=== PATIENT | female | born 1950 | race Caucasian/White ===

== ENCOUNTER → 2016-11-08 | Outpatient (CLI) | payer OTHER | LOC: FIMAGING 15:17 | PROVIDERS: ATTEND Internal Medicine | DX: Z12.31 Encounter for screening mammogram for malignant neoplasm of breast (principal) | CPT/HCPCS: G0202 ==

== ENCOUNTER → 2017-09-13 | Outpatient (CLI) | payer OTHER ==
[~2017-09-13] MED LIST: IOPAMIDOL (ISOVUE 370) 100 ML BTL IV ONE
== END ==
LOC: FIMAGING 15:57
PROVIDERS: ATTEND Internal Medicine
DX: J43.9 Emphysema, unspecified (principal); R91.8 Other nonspecific abnormal finding of lung field; Z87.891 Personal history of nicotine dependence
CPT/HCPCS: Q9967

== ENCOUNTER → 2017-09-30 | Outpatient (CLI) | payer OTHER | LOC: FIMAGING 14:31 | PROVIDERS: ATTEND Internal Medicine Critical Care Medicine | DX: R91.8 Other nonspecific abnormal finding of lung field (principal) ==

== ENCOUNTER → 2017-10-26 | Outpatient (CLI) | payer OTHER | LOC: FIMAGING 15:40 | PROVIDERS: ATTEND Internal Medicine Critical Care Medicine | DX: R91.8 Other nonspecific abnormal finding of lung field (principal) ==

== ENCOUNTER → 2017-12-02 | Outpatient (CLI) | payer OTHER ==
[~2017-12-02] MED LIST changes: +GADOBUTROL 10 ML VIAL IVP ONE; -IOPAMIDOL (ISOVUE 370) 100 ML BTL IV ONE
== END ==
LOC: FIMAGING 13:50
PROVIDERS: ATTEND Internal Medicine Hematology & Oncology
DX: R22.0 Localized swelling, mass and lump, head (principal); C34.11 Malignant neoplasm of upper lobe, right bronchus or lung
CPT/HCPCS: A9585

== ENCOUNTER 2017-12-26 06:04 | Day surgery (SDC) | payer OTHER ==
[2017-12-26] MEDS ORDERED: ceFAZolin 2 GM/DEXTROSE 100 ML IV ONE (06:08)
[2017-12-26] MEDS ORDERED: LIDOCAINE 1% 2 ML INJ ID PRN (06:11)
[2017-12-26] MEDS ORDERED: LR 1,000 ML IV ONE (06:11)
[2017-12-26] MEDS ORDERED: HEPARIN 10,000 UNIT/10 ML MDV (1,000 UNIT/ML) ONE (07:07)
[2017-12-26] MEDS ORDERED: LIDOCAINE 1% 300 MG/30 ML SDV ONE (07:07)
[2017-12-26] MEDS ORDERED: BUPIVACAINE 0.5% 30 ML SDV ONE (07:07)
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
[2017-12-26] MEDS ORDERED: MIDAZOLAM 2 MG/2 ML VIAL IVP ONE (07:19)
[2017-12-26] MEDS ORDERED: MIDAZOLAM 2 MG/2 ML VIAL ONE (07:22)
[2017-12-26] MEDS ORDERED: fentaNYL 100 MCG/2 ML INJ ONE (07:25)
[2017-12-26] MEDS ORDERED: LIDOCAINE 2% 2 ML INJ ONE (07:25)
[2017-12-26] MEDS ORDERED: PROPOFOL/EMULSION 500 MG/50 ML BOTTLE IV ONE (07:26)
--- NOTE | 2017-12-26 07:28 | PDHPUP ---
History & Physical Update H&P update statement: This history and physical update is based on an assessment of the patient which was completed after admission or registration (within 24 hours), but prior to the surgery/procedure. H&P update: H&P reviewed & patient examined, no change in patient's condition since H&P completed
--- NOTE | 2017-12-26 08:44 | POSTOPPROG ---
Post Op Note Date of Operation: 12/26/17 Surgeon: Waldemar Price Dinkey Driver: Poppy Serrato MSIII Anesthesiologist: Dr. Garcia Anesthesia: IV Sedation Pre-op Diagnosis: Cancer Post-op Diagnosis: same Procedure: Portacath Inf/Abcess present in the surg proc area at time of surgery?: No EBL: Minimal
[2017-12-26] MEDS ORDERED: HYDROCODONE/APAP 5/325 TAB PO PRN (08:50)
[2017-12-26] MEDS ORDERED: fentaNYL 100 MCG/2 ML INJ IVP PRN (08:50)
[2017-12-26] MEDS ORDERED: ALBUTEROL 3 ML DEYVIAL IH PRN (08:50)
[2017-12-26] MEDS ORDERED: ONDANSETRON 4 MG/2 ML VIAL IVP PRN (08:50)
[2017-12-26] MEDS ORDERED: PROMETHAZINE HCL 25 MG/ML INJ IVP PRN (08:50)
[2017-12-26] MEDS ORDERED: NALOXONE HCL 0.4 MG/ML INJ IVP PRN (08:50)
--- NOTE | 2017-12-26 08:51 | POSTANESTH ---
Post Anesthetic Evaluation Cardiovascular Status: Normal, Stable Respiratory Status: Normal, Stable Level of Consciousness/Mental Status: Can Participate in Eval Pain Control: Adequate, Prn Tx Ordered Nausea/Vomiting Control: Adequate, Prn Tx Ordered Complications Possibly Related to Anesthesia: None Noted
[2017-12-26 10:44] VITALS: BP 150/68
--- NOTE | 2017-12-26 15:59 | GOP ---
DATE OF OPERATION: 12/26/2017 SURGEON: Rodolfo Price MD RN CHILD: Poppy Serrato MS3. ANESTHESIA: Monitored anesthetic care. ANESTHESIOLOGIST: Dr. Garcia. PREOPERATIVE DIAGNOSIS: Cancer. POSTOPERATIVE DIAGNOSIS: Cancer. PROCEDURE PERFORMED: Port-A-Cath placement. FINDINGS: The patient had a left subclavian vein port placement. The port aspirated and flushed wel l and had a good appearance on fluoroscopy. ESTIMATED BLOOD LOSS: 20 cc. INDICATIONS: A 67-year-old female with a history of cancer. Risks and benefits of the procedure dis cussed with the patient and her family, questions were answered. They wished to proceed. DESCRIPTION OF PROCEDURE: The patient was in the supine position. After the induction of adequate I V sedation, the patient was prepped and draped in the standard surgical fashion. Marcaine 0.5% was i njected throughout the left chest for local anesthesia. A finder needle was used to aspirate the lef t subclavian vein. After dark, nonpulsatile blood was aspirated, the wire threaded without difficult y. Placement was confirmed on fluoroscopy. Next, the pocket site was created using a transverse inci mena with a #15 blade. This was carried down to the subcutaneous tissue with Bovie cautery and blunt dissection. A pocket was created inferiorly in a similar fashion. The wire site was widened with a #11 blade. The catheter was then tunneled from pocket site to the wire site. The dilator and sheat h were then placed over the wire. Placement was confirmed on fluoroscopy. The wire and dilator were removed and the catheter was threaded through the sheath. The placement was then adjusted under fluo roscopy. The pre-flushed catheter and port were then attached after trimming the catheter. The cath eter was sutured to the anterior chest wall using 2-0 Prolene in an interrupted fashion. It aspirate d and flushed easily, and placement was once again confirmed under fluoroscopy. The pocket was close d in layers using 3-0 Vicryl in an interrupted fashion for the subcutaneous tissue. The skin at all s ites was closed with 4-0 Monocryl in a subcuticular stitch. The wound was dressed with Dermabond. T he patient was then taken to the postanesthesia care unit in stable condition. COMPLICATIONS: None. DRAINS: None. /[id number]/MODL
== END 2017-12-26 10:40 | disposition home or self-care (01) ==
LOC: FSGY 06:04
PROVIDERS: ATTEND Surgery
DX: C34.91 Malignant neoplasm of unspecified part of right bronchus or lung (principal); F17.210 Nicotine dependence, cigarettes, uncomplicated
CPT/HCPCS: C1788; J0690; J1642; J1644; J2250; J2704; J3010

== ENCOUNTER → 2018-08-01 | Outpatient (CLI) | payer OTHER ==
[~2018-08-01] MED LIST changes: +IOPAMIDOL (ISOVUE-300) 100 ML BTL ONE
== END ==
LOC: FIMAGING 08:18
PROVIDERS: ATTEND Internal Medicine Hematology & Oncology
DX: C34.11 Malignant neoplasm of upper lobe, right bronchus or lung (principal); C79.51 Secondary malignant neoplasm of bone; G93.5 Compression of brain
CPT/HCPCS: 82565-PO; A9585; Q9967

== ENCOUNTER → 2018-08-14 | Outpatient (CLI) | payer OTHER ==
[~2018-08-14] MED LIST changes: -GADOBUTROL 10 ML VIAL IVP ONE; +IOPAMIDOL (ISOVUE 370) 100 ML BTL IV ONE; -IOPAMIDOL (ISOVUE-300) 100 ML BTL ONE
== END ==
LOC: FIMAGING 08:07
PROVIDERS: ATTEND Nurse Practitioner
DX: Z45.2 Encounter for adjustment and management of vascular access device (principal)
CPT/HCPCS: J1642; Q9967

== ENCOUNTER → 2018-08-31 | Outpatient (CLI) | payer OTHER | LOC: FIMAGING 13:06 | PROVIDERS: ATTEND Nurse Practitioner | DX: I82.491 Acute embolism and thrombosis of other specified deep vein of right lower extremity (principal); I82.591 Chronic embolism and thrombosis of other specified deep vein of right lower extremity; C34.90 Malignant neoplasm of unspecified part of unspecified bronchus or lung ==

== ENCOUNTER 2018-09-07 14:28 | Observation (INO) | payer OTHER ==
[2018-09-07 15:30] LABS: PLATELET COUNT 93 10^3/uL (150-400)
--- NOTE | 2018-09-07 15:40 | EDPHY ---
H & P Stated Complaint: L VISUAL PROBLEMS SINCE TUESDAY SEEN BY OPTH SENT FOR MRI Time Seen by Provider: 09/07/18 14:51 HPI/ROS: CHIEF COMPLAINT: Vision loss HISTORY OF PRESENT ILLNESS: 68-year-old female s/p left carotid endarterectomy and h/o lung cancer presents with visual loss. Onset of left-sided visual loss 3 days ago. The visual loss has been constant since then. She was seen by Dr. Garcia in the office today, who performed an ophthalmological exam. Eye exam was normal and she was sent to the emergency department for further evaluation of CVA. Frequent headaches and intermittent dizziness over the past week. She was diagnosed with a DVT in the mid right gastrocnemius vein on 08/31/2018 and prescribed Xarelto. She has not started taking Xarelto yet because the pharmacy did not have the correct dosing. She stopped taking aspirin when she was diagnosed with the DVT. Denies trauma, extremity weakness/numbness, chiropractic manipulation. REVIEW OF SYSTEMS: complete 10 point ROS reviewed and is negative except for the noted elements in the HPI Source: Patient - Personal History Current Tetanus Diphtheria and Acellular Pertussis (TDAP): Yes Tetanus Vaccine Date: - Medical/Surgical History Hx Asthma: No Hx Chronic Respiratory Disease: No Hx Diabetes: No Hx Cardiac Disease: No Hx Renal Disease: No Hx Cirrhosis: No Hx Alcoholism: No Hx HIV/AIDS: No Hx Splenectomy or Spleen Trauma: No Other PMH: LUNG CANCER - Social History Smoking Status: Former smoker Alcohol Use: Sober Drug Use: None - Physical Exam Exam: General Appearance: Alert, pleasant Eyes: Pupils equal and round, no conjunctival pallor or injection, left homomonyous hemianopsia ENT, Mouth: Mucous membranes moist Neck: Normal inspection Respiratory: Lungs are clear to auscultation Cardiovascular: Regular rate and rhythm Gastrointestinal: Abdomen is soft and nontender Neurological: Alert, oriented x3, cranial nerves III through XII intact, motor 5/5, sensory intact to light touch, normal gait. Skin: Warm and dry, no rash Extremities: Normal inspection Psychiatric: Mood and affect normal Constitutional: Initial Vital Signs Temperature (C) 36.7 C 09/07/18 14:31 Heart Rate 110 H 09/07/18 14:31 Respiratory Rate 20 09/07/18 14:31 Blood Pressure 198/113 H 09/07/18 14:31 O2 Sat (%) 88 L 09/07/18 14:31 O2 Delivery Mode Room Air O2 (L/minute) 2 Allergies/Adverse Reactions: erythromycin base [Erythromycin Base] Allergy (Unknown, Verified 09/07/18 16:48) Vomiting venlafaxine HCl [From Effexor] Allergy (Unknown, Verified 09/07/18 16:48) "Hunt goofy, drunk" Home Medications: Medication Instructions Recorded Atorvastatin Calcium [Lipitor 40 80 mg PO DAILY@09/07/18 mg (*)] Baclofen [Baclofen 10 mg (*)] 10 mg PO DAILY@09/07/18 Baclofen [Baclofen 10 mg (*)] 10 mg PO Q8H PRN 09/07/18 Cholecalciferol Vit D3 [Vitamin D3 2,000 units PO DAILY@09/07/18 (*)] Dexamethasone [Decadron 4 MG (*)] 4 mg PO BID PRN 09/07/18 Esomeprazole Magnesium [Nexium 20 mg PO DAILY@09/07/18 24Hr] Folic Acid [Folic Acid 1 MG (*)] 1 mg PO DAILY@09/07/18 Furosemide [Lasix 20 MG (*)] 20 mg PO DAILY PRN 09/07/18 Hydrocortisone [Cortef 10 mg (*)] 10 mg PO BID@,09/07/18 Megestrol Acetate 400 mg PO DAILY PRN 09/07/18 Rivaroxaban [Xarelto 15mg (*)] 15 mg PO BID 09/07/18 oxyCODONE HCL [Oxycontin] 30 mg PO BID@09/07/18 oxyCODONE IR [Oxycodone Ir (*)] 5 - 10 mg PO Q4H PRN 09/07/18 Aspirin [Aspirin 325 mg (*)] 325 mg PO DAILY tab 09/08/18 metFORMIN HCL [Glucophage 500 mg 500 mg PO BIDMEAL #60 tab 09/08/18 (*)] Medical Decision Making - Diagnostics EKG Interpretation: EKG interpreted by me reveals normal sinus rhythm, rate 94, LAE, no ST or T segment changes. Interpretation: borderline EKG Imaging Results: Head CT 09/07/18 14:51 Impression: Subacute versus acute right occipital ischemic infarction. No hemorrhagic transformation or mass effect. Findings discussed with Emergency Department physician, Mitra Stanton, on 2018 at 15:30. Imaging: Discussed imaging studies w/ rn call center Radiologist, I viewed and interpreted images myself ED Course/Re-evaluation: This patient presents with a 3 day h/o left visual field deficit. The remainder of her neurologic exam is normal. Sx c/w CVA. She is outside the window for tPA. CT scan of the brain read by Dr. Massey reveals a subacute right occipital CVA, which correlates with her symptoms. Results discussed with the patient. Lower extremity ultrasound from 08/31/2018 reviewed and reveals a DVT in the right mid gastrocnemius vein. Will need treatment for DVT and for CVA prevention, including Xarelto and ASA (given in ED). Dr. Chua was consulted and suggests aspirin 325 mg daily as well as Xarelto for the DVT. Dr. Goldman was consulted from the hospitalist service and will admit the patient. CTA head/neck: mild arteriosclerosis, no acute thrombosis. Pt remained stable throughout her ED stay. Differential Diagnosis: includes though not limited to retinal hemorrhage, retinal vein/artery thrombosis, ICH, tumor - Data Points Laboratory Results: Laboratory Results 09/07/18 15:20 09/07/18 15:20 Medications Given: Discontinued Medications Artificial Tears (Natural Balance Tears) 1 drop EACHEYE Q2HRS PRN PRN Reason: Dry Irritated Eyes Stop: 03/06/19 20:00 Last Admin: 09/08/18 09:32 Dose: 1 drop Aspirin (Aspirin) 325 mg PO EDNOW ONE Stop: 09/07/18 15:44 Last Admin: 09/07/18 15:49 Dose: 325 mg Aspirin (Aspirin) 325 mg PO DAILY [facility] Stop: 03/07/19 08:59 Last Admin: 09/08/18 08:26 Dose: 325 mg Atorvastatin Calcium (Lipitor) 80 mg PO DAILY@18 [facility] Stop: 03/06/19 17:59 Last Admin: 09/07/18 19:42 Dose: 80 mg Baclofen (Baclofen) 10 mg PO DAILY@18 [facility] Stop: 03/06/19 17:59 Last Admin: 09/07/18 19:41 Dose: 10 mg Cholecalciferol (Vitamin D) 2,000 units PO DAILY@18 [facility] Stop: 03/06/19 17:59 Last Admin: 09/07/18 19:41 Dose: 2,000 units Folic Acid (Folic Acid) 1 mg PO DAILY@18 [facility] Stop: 03/06/19 17:59 Last Admin: 09/07/18 19:42 Dose: 1 mg Hydrocortisone (Cortef) 10 mg PO BID@ [facility] Stop: 03/06/19 17:59 Last Admin: 09/08/18 05:02 Dose: 10 mg Oxycodone HCl (Oxycontin) 30 mg PO BID@ [facility] Stop: 09/17/18 17:59 Last Admin: 09/08/18 05:02 Dose: 30 mg Oxycodone HCl (Oxycodone Ir) 5 - 10 mg PO Q4H PRN PRN Reason: Pain, Breakthrough Stop: 09/17/18 16:57 Last Admin: 09/08/18 13:06 Dose: 10 mg Pantoprazole Sodium (Protonix) 40 mg PO DAILY@0400 [facility] Stop: 03/07/19 03:59 Last Admin: 09/08/18 05:02 Dose: 40 mg Potassium Chloride (Klor-Con) 10 meq PO ONCE ONE PRN Reason: Protocol Stop: 09/07/18 19:28 Last Admin: 09/07/18 19:41 Dose: 10 meq Potassium Chloride (Klor-Con) 10 meq PO ONCE ONE PRN Reason: Protocol Stop: 09/08/18 07:08 Last Admin: 09/08/18 08:26 Dose: 10 meq Rivaroxaban (Xarelto) 15 mg PO EDNOW ONE Stop: 09/07/18 15:45 Last Admin: 09/07/18 15:49 Dose: 15 mg Rivaroxaban (Xarelto) 15 mg PO DAILY [facility] Stop: 03/07/19 08:59 Last Admin: 09/08/18 08:25 Dose: 15 mg Point of Care Test Results: Chemistry 09/07/18 15:39 POC Troponin I 0.02 ng/mL ng/mL (0.00-0.08) Departure - Departure Disposition: [facility] Acute Clinical Impression: Acute ischemic stroke Condition: Fair
[2018-09-07 15:42] LABS: INR 1.09 (0.83-1.16); PROTIME(PATIENT) 13.7 SEC (12.0-15.0)
[2018-09-07] MEDS ORDERED: ASPIRIN 325 MG TAB PO ONE (15:43)
[2018-09-07] MEDS ORDERED: RIVAROXABAN 15 MG TAB PO ONE (15:44)
[2018-09-07] MEDS ORDERED: IOPAMIDOL (ISOVUE 370) 100 ML BTL IV ONE (16:28)
[2018-09-07] MEDS ORDERED: BACLOFEN 10 MG TAB PO PRN (16:58)
[2018-09-07] MEDS ORDERED: DEXAMETHASONE 4 MG TAB PO PRN (16:58)
[2018-09-07] MEDS ORDERED: MEGESTROL ACETATE 400 MG PO PRN (16:58)
[2018-09-07] MEDS ORDERED: hydrALAZINE 10 MG TAB PO PRN (17:08)
--- NOTE | 2018-09-07 17:12 | PDGENHP ---
<Yahaira Alanis - Last Filed: 09/07/18 17:57> History and Physical - Chief Complaint Subacute vs acute right occipital ischemic infarction - History of Present Illness 68 y/o female w/hx of non-small cell lung cancer presents w/ left sided visual loss. Onset was on Tuesday. She was dx'ed w/DVT in the mid-right gastrocnemius vein 08/31/18 and prescribed Xarelto and told to stop ASA 81 mg. The pharmacy did not have the correct dose and because of that, she was not using any AC or anti-platelet since being dx'ed w/the DVT last . Since Tuesday of this week, her vision loss has been constant. She f/u'ed today w/Dr. Garcia, carton lettering machine operator, for an exam which was normal and sent to the ED for further evaluation of a CVA. Head CT w/o contrast reveals subacute vs acute right occipital ischemic infarction w/no hemorrhagic transformation or mass effect. She endorses intermittent PALACIOS and dizziness. Endorses CP r/t lung cancer. Denies palpitations, nausea, or vomiting. She is being admitted for treatment and monitoring. History Information - Allergies/Home Medication List Allergies/Adverse Reactions: erythromycin base [Erythromycin Base] Allergy (Unknown, Verified 09/07/18 16:48) Vomiting venlafaxine HCl [From Effexor] Allergy (Unknown, Verified 09/07/18 16:48) "[place] goofy, drunk" Home Medications: Atorvastatin Calcium [Lipitor 40 mg (*)] 80 mg PO DAILY@09/07/18 [Last Taken 09/06/18] Baclofen [Baclofen 10 mg (*)] 10 mg PO DAILY@09/07/18 [Last Taken 09/06/18] Baclofen [Baclofen 10 mg (*)] 10 mg PO Q8H PRN 09/07/18 [Last Taken Unknown] Cholecalciferol Vit D3 [Vitamin D3 (*)] 2,000 units PO DAILY@09/07/18 [Last Taken 09/06/18] Dexamethasone [Decadron 4 MG (*)] 4 mg PO BID PRN 09/07/18 [Last Taken 09/01/18] Esomeprazole Magnesium [Nexium 24Hr] 20 mg PO DAILY@09/07/18 [Last Taken ] Folic Acid [Folic Acid 1 MG (*)] 1 mg PO DAILY@18 09/07/18 [Last Taken 09/06/18] Furosemide [Lasix 20 MG (*)] 20 mg PO DAILY PRN 09/07/18 [Last Taken Unknown] Hydrocortisone [Cortef 10 mg (*)] 10 mg PO BID@,09/07/18 [Last Taken 05:00] Megestrol Acetate 400 mg PO DAILY PRN 09/07/18 [Last Taken 09/06/18] Rivaroxaban [Xarelto 15mg (*)] 15 mg PO BID 09/07/18 [Last Taken Unknown] oxyCODONE HCL [Oxycontin] 30 mg PO BID@,09/07/18 [Last Taken 09/07/18 05:00 ] oxyCODONE IR [Oxycodone Ir (*)] 5 - 10 mg PO Q4H PRN 09/07/18 [Last Taken ] I have personally reviewed and updated: family history, medical history, social history, surgical history Past Medical History: Non-small cell lung cancer, Allergic rhinitis, hyperlipidemia, depression, GERD, hx of CVA, peripheral vascular disease - Surgical History Additional surgical history: Left carotid endarterectomy (2002) - Family History Positive for: cancer (Mother had brain cancer) - Social History Smoking Status: Former smoker Alcohol Use: Sober Drug Use: None Additional social history: Lives w/partner. Employed at [employer]. Review of Systems Review of Systems: ROS: 10pt was reviewed & negative except for what was stated in HPI & below Physical Exam Physical Exam: Lab data and imaging were reviewed. Case discussed w/admitting physician, Dr. Raciel Goldman. WBC: 2.81 H/H: 13.1/40.0 Plt count: 93 Na: 133 K: 3.4 Cl: 94 Co2: 27 BUN/Cr: 22/1.1 Troponin: 0.02 INR: 1.09 EKG: NSR Head CT w/o contrast: see HPI Temp Pulse Resp BP Pulse Ox 36.5 C 84 18 181/85 H 97 09/07/18 16:39 09/07/18 16:39 09/07/18 16:39 09/07/18 16:39 09/07/18 16:39 O2 (L/minute) 2 Constitutional: other (Distraught. Tearful. Attempting to understand how this happened. "Did I do this to myself by not taking aspirin?") Eyes: other (Left homomonyous hemianopsia) Ears, Nose, Mouth, Throat: moist mucous membranes, hearing normal, ears appear normal, no oral mucosal ulcers Cardiovascular: regular rate and rhythym, no murmur, rub, or gallop, tachycardia Peripheral Pulses: 2+: dorsalis-pedis (R), dorsalis-pedis (L) Respiratory: reduced air movement Gastrointestinal: normoactive bowel sounds, soft, non-tender abdomen, no palpable masses Genitourinary: no bladder fullness, no bladder tenderness Skin: warm, normal color, no rashes or abrasions, no fluctuance, no induration, No mottled Musculoskeletal: full muscle strength, normal joint ROM, no joint effusions, muscular tenderness (Right calf tenderness. However, no edema or erythema.) Neurologic: AAOx3, sensation intact bilaterally, other (CN3-12 intact) Psychiatric: not encephalopathic, thought process linear, anxious Lymph, Heme, Immunologic: no cervical LAD, no supraclavicular LAD Lab Data & Imaging Review 09/07/18 15:20 09/07/18 15:20 WBC 2.81 10^3/uL (3.80-9.50) L 09/07/18 15:20 RBC 3.98 10^6/uL (4.18-5.33) L 09/07/18 15:20 Hgb 13.1 g/dL (12.6-16.3) 09/07/18 15:20 Hct 40.0 % (38.0-47.0) 09/07/18 15:20 MCV 100.5 fL (81.5-99.8) H 09/07/18 15:20 MCH 32.9 pg (27.9-34.1) 09/07/18 15:20 MCHC 32.8 g/dL (32.4-36.7) 09/07/18 15:20 RDW 16.5 % (11.5-15.2) H 09/07/18 15:20 Plt Count 93 10^3/uL (150-400) L 09/07/18 15:20 MPV 10.3 fL (8.7-11.7) 09/07/18 15:20 Neut % (Auto) 47.2 % (39.3-74.2) 09/07/18 15:20 Lymph % (Auto) 34.9 % (15.0-45.0) 09/07/18 15:20 [place] % (Auto) 14.6 % (4.5-13.0) H 09/07/18 15:20 Eos % (Auto) 0.4 % (0.6-7.6) L 09/07/18 15:20 Baso % (Auto) 0.4 % (0.3-1.7) 09/07/18 15:20 Nucleat RBC Rel Count 0.0 % (0.0-0.2) 09/07/18 15:20 Absolute Neuts (auto) 1.33 10^3/uL (1.70-6.50) L 09/07/18 15:20 Absolute Lymphs (auto) 0.98 10^3/uL (1.00-3.00) L 09/07/18 15:20 Absolute Monos (auto) 0.41 10^3/uL (0.30-0.80) 09/07/18 15:20 Absolute Eos (auto) 0.01 10^3/uL (0.03-0.40) L 09/07/18 15:20 Absolute Basos (auto) 0.01 10^3/uL (0.02-0.10) L 09/07/18 15:20 Absolute Nucleated RBC 0.00 10^3/uL (0-0.01) 09/07/18 15:20 Immature Gran % 2.5 % (0.0-1.1) H 09/07/18 15:20 Immature Gran # 0.07 10^3/uL (0.00-0.10) 09/07/18 15:20 RBC/WBC/PLT Morphology TNP 09/07/18 15:20 Platelet Estimate TNP 09/07/18 15:20 PT 13.7 SEC (12.0-15.0) 09/07/18 15:20 INR 1.09 (0.83-1.16) 09/07/18 15:20 APTT 25.1 SEC (23.0-38.0) 09/07/18 15:20 Sodium 133 mEq/L (135-145) L 09/07/18 15:20 Potassium 3.4 mEq/L (3.5-5.2) L 09/07/18 15:20 Chloride 94 mEq/L (97-110) L 09/07/18 15:20 Carbon Dioxide 27 mEq/l (22-31) 09/07/18 15:20 Anion Gap 12 mEq/L (6-14) 09/07/18 15:20 BUN 22 mg/dL (7-23) 09/07/18 15:20 Creatinine 1.1 mg/dL (0.6-1.0) H 09/07/18 15:20 Estimated GFR 50 09/07/18 15:20 Glucose 177 mg/dL (70-100) H 09/07/18 15:20 Calcium 8.8 mg/dL (8.5-10.4) 09/07/18 15:20 Total Bilirubin 1.9 mg/dL (0.1-1.4) H 09/07/18 15:20 Conjugated Bilirubin 0.3 mg/dL (0.0-0.5) 09/07/18 15:20 Unconjugated Bilirubin 1.6 mg/dL (0.0-1.1) H 09/07/18 15:20 AST 36 IU/L (14-46) 09/07/18 15:20 ALT 48 IU/L (9-52) 09/07/18 15:20 Alkaline Phosphatase 71 IU/L (38-126) 09/07/18 15:20 POC Troponin I 0.02 ng/mL (0.00-0.08) 09/07/18 15:39 Total Protein 6.6 g/dL (6.3-8.2) 09/07/18 15:20 Albumin 3.8 g/dL (3.5-5.0) 09/07/18 15:20 Assessment & Plan Assessment: 68 y/o female w/hx of lung cancer presenting w/ 3 days worth of left sided vision loss, subsequently upon imaging enduring right occipital lobe ischemic infarction. Vital signs presenting to the ED and currently respectively: BP 198/113, HR 110, Resp 20, Temp 36.7c, 88% RA to 95% 2L NC; BP 181/85, pulse 84, Resp 18, 36.5c, 97% 2L NC. #Subacute vs acute right occipital ischemic stroke -Neurology was consulted and recommended ED to give ASA and Xarelto for DVT -Cont ASA 325 QD + Xarelto 15 mg QD -Head and neck CTA pending -Echo w/bubbler pending -Cont tele monitoring -Stroke protocol initiated -Lipid panel in AM -Cycle one more troponin tonight; first one negative -PT/OT/CUSTOM SHOP WORKER to evaluate and treat #Hypertension -Remains hypertensive while in house, c/o intermittent PALACIOS -Permissive HTN; hydralazine PO PRN if sbp > 180 #RLE DVT -Noted continued tenderness to calf region however not edematous nor erythematous or taut. Reportedly stopped utilizing her ASA 81 mg and was to begin Xarelto but d/t her pharmacy not having the correct dose, she did not take either one. -Received Xarelto 15 mg PO in ED; cont 15 mg PO QD instead of BID in light of ischemic stroke #Non-small cell lung cancer -Oncologist is Dr. Baez -Receives tx Q3 wks -No longer smokes cigarettes #Hyponatremia/Hypokalemia -Encourage PO intake -K protocol initiated; replete Diet: Regular Code: Full VTE ppx: Xarelto Dispo: Admit to obs <Reinaldo Goldman - Last Filed: 09/07/18 23:39> History and Physical - History of Present Illness Review of Systems Review of Systems: Physical Exam Physical Exam: Temp Pulse Resp BP Pulse Ox 36.5 C 84 18 181/85 H 97 09/07/18 16:39 09/07/18 16:39 09/07/18 16:39 09/07/18 16:39 09/07/18 16:39 O2 (L/minute) 2 Lab Data & Imaging Review 09/07/18 15:20 09/07/18 18:13 WBC 2.81 10^3/uL (3.80-9.50) L 09/07/18 15:20 RBC 3.98 10^6/uL (4.18-5.33) L 09/07/18 15:20 Hgb 13.1 g/dL (12.6-16.3) 09/07/18 15:20 Hct 40.0 % (38.0-47.0) 09/07/18 15:20 MCV 100.5 fL (81.5-99.8) H 09/07/18 15:20 MCH 32.9 pg (27.9-34.1) 09/07/18 15:20 MCHC 32.8 g/dL (32.4-36.7) 09/07/18 15:20 RDW 16.5 % (11.5-15.2) H 09/07/18 15:20 Plt Count 93 10^3/uL (150-400) L 09/07/18 15:20 MPV 10.3 fL (8.7-11.7) 09/07/18 15:20 Neut % (Auto) 47.2 % (39.3-74.2) 09/07/18 15:20 Lymph % (Auto) 34.9 % (15.0-45.0) 09/07/18 15:20 [place] % (Auto) 14.6 % (4.5-13.0) H 09/07/18 15:20 Eos % (Auto) 0.4 % (0.6-7.6) L 09/07/18 15:20 Baso % (Auto) 0.4 % (0.3-1.7) 09/07/18 15:20 Nucleat RBC Rel Count 0.0 % (0.0-0.2) 09/07/18 15:20 Absolute Neuts (auto) 1.33 10^3/uL (1.70-6.50) L 09/07/18 15:20 Absolute Lymphs (auto) 0.98 10^3/uL (1.00-3.00) L 09/07/18 15:20 Absolute Monos (auto) 0.41 10^3/uL (0.30-0.80) 09/07/18 15:20 Absolute Eos (auto) 0.01 10^3/uL (0.03-0.40) L 09/07/18 15:20 Absolute Basos (auto) 0.01 10^3/uL (0.02-0.10) L 09/07/18 15:20 Absolute Nucleated RBC 0.00 10^3/uL (0-0.01) 09/07/18 15:20 Immature Gran % 2.5 % (0.0-1.1) H 09/07/18 15:20 Immature Gran # 0.07 10^3/uL (0.00-0.10) 09/07/18 15:20 RBC/WBC/PLT Morphology TNP 09/07/18 15:20 Platelet Estimate TNP 09/07/18 15:20 PT 13.7 SEC (12.0-15.0) 09/07/18 15:20 INR 1.09 (0.83-1.16) 09/07/18 15:20 APTT 25.1 SEC (23.0-38.0) 09/07/18 15:20 Sodium 133 mEq/L (135-145) L 09/07/18 15:20 Potassium 3.8 mEq/L (3.5-5.2) 09/07/18 18:13 Chloride 94 mEq/L (97-110) L 09/07/18 15:20 Carbon Dioxide 27 mEq/l (22-31) 09/07/18 15:20 Anion Gap 12 mEq/L (6-14) 09/07/18 15:20 BUN 22 mg/dL (7-23) 09/07/18 15:20 Creatinine 1.1 mg/dL (0.6-1.0) H 09/07/18 15:20 Estimated GFR 50 09/07/18 15:20 Glucose 177 mg/dL (70-100) H 09/07/18 15:20 Calcium 8.8 mg/dL (8.5-10.4) 09/07/18 15:20 Total Bilirubin 1.9 mg/dL (0.1-1.4) H 09/07/18 15:20 Conjugated Bilirubin 0.3 mg/dL (0.0-0.5) 09/07/18 15:20 Unconjugated Bilirubin 1.6 mg/dL (0.0-1.1) H 09/07/18 15:20 AST 36 IU/L (14-46) 09/07/18 15:20 ALT 48 IU/L (9-52) 09/07/18 15:20 Alkaline Phosphatase 71 IU/L (38-126) 09/07/18 15:20 POC Troponin I 0.02 ng/mL (0.00-0.08) 09/07/18 15:39 Troponin I < 0.012 ng/mL (0.000-0.034) 09/07/18 18:13 Total Protein 6.6 g/dL (6.3-8.2) 09/07/18 15:20 Albumin 3.8 g/dL (3.5-5.0) 09/07/18 15:20 Assessment & Plan Assessment: I assessed the patient along with Emilia Alanis and reviewed in detail with her. I agree with the assessment and plan as above, other than that I have changed the blood pressure parameters for p.r.n. Blood pressure medicine for her tonight.She is past 72 hr from her stroke so aggressive blood pressure management at this point is appropriate. This patient unfortunately has suffered a stroke, but fortunately has not gotten trouble from DVT without taking any anticoagulant over the past 2 months. At this point resuming aspirin anticoagulation is very important.
[2018-09-07] MEDS ORDERED: PROTOCOL POTASSIUM 1 DOSE MISC PRN (17:25)
[2018-09-07] MEDS ORDERED: FOLIC ACID 1 MG TAB PO SCH (18:00)
[2018-09-07] MEDS ORDERED: ATORVASTATIN CALCIUM 40 MG TAB PO SCH (18:00)
[2018-09-07] MEDS ORDERED: BACLOFEN 10 MG TAB PO SCH (18:00)
[2018-09-07] MEDS ORDERED: CHOLECALCIFEROL VIT D3 1,000 UNITS TAB PO SCH (18:00)
[2018-09-07] MEDS: oxyCODONE IR 5 MG TAB PO PRN ×2 (18:13→22:03)
[2018-09-07] MEDS ORDERED: POTASSIUM CL 10 MEQ TAB PO ONE (19:27)
[2018-09-07] MEDS: HYDROCORTISONE 10 MG TAB PO SCH (19:42)
[2018-09-07] MEDS: oxyCODONE CR 30 MG TAB PO SCH (19:42)
[2018-09-07] MEDS: TEARS/DEXTRAN 70/HYPROMELLOSE 15 ML OPHT.BTL EACHEYE PRN (21:37)
[2018-09-07] MEDS ORDERED: LABETALOL HCL 5 MG/ML 20 ML MDV IVP PRN ×2 (22:41→23:35)
[2018-09-08] MEDS ORDERED: PANTOPRAZOLE SODIUM 40 MG TAB PO SCH (04:00)
[2018-09-08] MEDS: HYDROCORTISONE 10 MG TAB PO SCH (05:02)
[2018-09-08] MEDS: oxyCODONE CR 30 MG TAB PO SCH (05:02)
[2018-09-08] MEDS ORDERED: POTASSIUM CL 10 MEQ TAB PO ONE (07:07)
[2018-09-08] MEDS: oxyCODONE IR 5 MG TAB PO PRN ×2 (08:26→13:06)
--- NOTE | 2018-09-08 08:47 | GCON ---
[f rep st] CONSULTATION NEUROLOGIC CONSULTATION REFERRING PHYSICIAN: Reinaldo Goldman MD HISTORY: The patient is a 68-year-old woman who I am asked to see in neurologic consultation regardi ng stroke. She has a history of lung cancer diagnosed about a year ago, which she says is inoperable , but is treated with chemotherapy and having a response. She also has a history of recent right low er extremity DVT and was in the process of getting on Xarelto and had stopped aspirin, and then there were troubles getting on it due to pharmacy challenges, and during this window she developed visual changes 4 days ago. Initially was blackening of vision to the left and subsequently she describes tr ouble seeing toward the left, but more of a drift of a visual image. There is no numbness or slurrin g of speech. No double vision. She has variable headache. She has never had a similar phenomenon b efore. After seeing her sas developer, she went to the emergency room where a stroke was seen in t he right occipital lobe that looks subacute in nature. She also had CT angiogram of the head and nec k, which revealed no significant stenoses, but there was evidence of prior meningioma that has not en larged. She was aware of that. She has had some dizziness as well. No chest pain, palpitations, or shortness of breath. PAST MEDICAL HISTORY: Notable for the non-small cell lung cancer, hyperlipidemia, depression, reflux , and prior left carotid endarterectomy 2002. SOCIAL HISTORY: She is a former smoker. She does not drink alcohol. She is employed and lives with her partner in the area. Most of her life she was in [place] early, but moved around a lot she said . She hopes to get back to [place]. HOME MEDICATIONS: Lipitor, baclofen, Decadron, Nexium, Lasix, hydrocortisone, Xarelto just being sta rted, oxycodone or OxyContin. ALLERGIES: To erythromycin and venlafaxine. REVIEW OF SYSTEMS: Unremarkable except for that noted above. PHYSICAL EXAM: VITAL SIGNS: Blood pressure 120/77, pulse of 79, respirations 16, temperature 36.6. GENERAL: She is well developed, no acute distress. NECK: Supple. No bruits or masses. CARDIAC: Regular rate and rhythm. No murmur. NEURO: She is alert and attentive with clear and fluent speec h. Pupils 2 mm and reactive. Left homonymous hemianopsia. Extraocular movements intact. Normal fa cial sensation and strength. Hearing preserved. MOTOR: Normal muscle bulk and tone with 5/5 streng th. No abnormal movement. No ataxia on ceuovg-ly-gunm, but slight tremulousness in the left hand. Reflexes are 1+ and symmetric. LABORATORY DATA: I have reviewed all the diagnostic studies. White count is 2800, hematocrit 40%. Platelet count 93,000. INR is normal. LDL cholesterol 121. S odium 133, chloride 94, creatinine 1.1, glucose 177. The patient's NIH Stroke Scale is 1. IMPRESSION: Total unit time of 55 minutes. The patient has experienced an acute stroke in the right occipital lobe with left visual field loss. She has a hypercoagulable state with a cancer and had a recent deep venous thrombosis. She was temporarily off anti-platelet or anticoagulation therapy whe n this occurred. Is appropriate for her to continue anticoagulation for the deep venous thrombosis p rophylaxis and daily aspirin. She should remain on statin therapy. Echocardiogram is pending and wi ll be important to look for any evidence of patent foramen ovale given the fact that she had a deep v enous thrombosis recently. There are no large vessel stenoses. She needs physical, occupational and speech therapy consults. If all else stabilizes, she can potent ially be discharged from my perspective today and follow up as an outpatient. /[id number]/MODL
[2018-09-08] MEDS ORDERED: ASPIRIN 325 MG TAB PO SCH (09:00)
[2018-09-08] MEDS ORDERED: RIVAROXABAN 15 MG TAB PO SCH ×2 (09:00→21:00)
[2018-09-08] MEDS: TEARS/DEXTRAN 70/HYPROMELLOSE 15 ML OPHT.BTL EACHEYE PRN (09:32)
--- NOTE | 2018-09-08 11:19 | PDDCSUM ---
Discharge Summary Discharge Summary: The pt is a 68 yo female who presented with several day hx of left visual field deficit. She had recently been diagnosed with a RLE DVT and started on Xarelto. There had been some difficulty starting this medication and she had not started it. She had also stopped her Aspirin. She was admitted. Imaging revealed an acute right occipital infarct. Neurology provided consultation: -Afib: none noted -CTA H/N: no signficant stenosis -TTE: negative Bubble -HLD: on Statin -DM: started Metformin -BP: appropriate DDX: #Right occipital CVA -Cont Aspirin -Cont AC per below #RLE DVT -start Xarelto. She now has the meds at home. Will eventually transition to once a day dosing. #HLD -cont statin #DM -recent A1C 7.5. Several other elevated A1C. Started Metformin. #Lung Cancer, non operative per her reports. On chemo. F/u accordingly #Adrenal insufficiency: cont home meds/steroids. Likely contributing to worsening DM #Muscle Spasm: Baclofen Exam: VSS NAD AAOX3 RRR CTA B NO EDEMA MEDS: SEE MED REC TOTAL TIME SPENT ON D/C IS 35 MINS
--- NOTE | 2018-09-08 11:20 | PDIAF ---
- Diagnosis Diagnosis: STROKE Code Status: Full Code - Medication Management Discharge Medications: electronically signed and located in the Home Medication List. - Orders Services needed: Home Care, Physical Therapy, Occupational Therapy Home Care Face to Face: I certify that this patient was under my care and that I had the required [id number] encounter meeting the encounter requirements on the discharge day. My findings support the fact that the patient is homebound as defined in Home Care Face to Face Continued: CMS Chapter 7 Medicare Benefits Manual 30.1.1 , The condition of the patient is such that there exists a normal inability to leave home and consequently, leaving home would require a considerable and taxing effort. Diet Recommendation: no restrictions on diet Diet Texture: Regular Texture Diet, Thin Liquids Additional Instructions: Activity: as tolerated F/U: with PCP next week. With Cigarette Examiner as scheduled Please make sure you take medications as prescribed - Follow Up Care Current Providers and Referrals: Marissa Dempsey MD [Primary Care Provider] - As per Instructions
--- NOTE | 2018-09-08 11:30 | ECHO ---
[email or web address] [address] [address] Main: [phone] Echocardiography Examination Transthoracic Name: OSCAR FERREIRA MR#: [id number] Study Date: 09/08/2018 Study Time: 09:28 AM Date of : 1950 Age: 68 year(s) Height: 167.6 cm (66 in.) Weight: 64.41 kg (142 lb.) BSA: 1.73 m2 Gender: Female Examination: Echo Contrast: I.V. dose of agitated saline Image Quality: Adequate Rhythm: Normal sinus rhythm Heart Rate: 79 bpm BP: 157 mmHg/82 mmHg Indication: ischemic stroke, bubble Procedure Staff Referring Physician: Fabrication Mig Welder: Marisa Dempsey [facility] Reading Physician: Jonny Zaman MD Requesting Provider: Ordering Physician: Yahaira Alanis Indication: ischemic stroke, bubble Measurements Chambers AV/MV Label Value Normal Value Label Value Normal Value LVOT Vmax 0.85 m/s (0.7m/s - 1.1m/s) AV PGmax 7 mmHg LVOTd 2 cm (1.8cm - 2cm) AV Vmax 1.33 m/s LVDd, 2D 4 cm (3.9cm - 5.3cm) LISBET (Vmax) 2 cm2 LVDs, 2D 2.6 cm (2.1cm - 4cm) MV E Vmax 0.86 m/s IVSd, 2D 0.8 cm (0.6cm - 1.1cm) MV A Vmax 0.83 m/s LVPWd, 2D 0.8 cm MV E/A 1.04 LVEF, BP 62 % (55% - 70%) MV E/E' lateral 11.5 LVEF, 2D 62 % (54% - 74%) MV E/E' septal 18.1 (0.45 - 1.25) RVDd, 2D 2.7 cm (1.9cm - 3.8cm) MV DT 201 ms TAPSE 1.7 cm MV E' septal 0.05 m/s LA Volume, BP 39 ml (22ml - 52ml) MV VTI 16.6 cm LADs, 2D 3.1 cm (2.7cm - 3.8cm) MV PGmax 2 mmHg LAESV index, BP 22.5 ml/m2 MV PGmean 1 mmHg RA Area 9.5 cm2 MV Alondra 3.2 cm Additional Vessels MR Reg. Volume 32 ml Label Value Normal Value MR Reg. Fraction 24 % AoAsc 2.5 cm MR Vmax 6.22 m/s AoRoot, 2D 2.8 cm (1.4cm - 2.6cm) MR VTI 226 cm MR (ERO) 0.14 cm2 Patient: OSCAR FERREIRA Study Date: 09/08/2018 Page 1 of 3 09:28 AM MV E' lateral 0.08 m/s MR PISA Radius 0.6 cm MV E/E' mean 13.23 MR PISA Alias V. 38.5 cm/s MV E' mean 0.06 m/s TV/PV Label Value Normal Value PV PGmax 3 mmHg PV Vmax, Caliper 0.92 m/s (0.6m/s - 0.9m/s) Conclusions Overall Conclusions: No pericardial effusion. Normal left ventricular systolic function. Moderate mitral regurgitation. Mild tricuspid regurgitation. Right ventricular systolic pressure cannot be measured. Agitated saline revealed no evidence of [id number]-tz-okcb shunt. Findings Left Ventricle: Left ventricle is normal in size. Normal global systolic left ventricular function. EF evaluated by EF (biplane Bonilla's). The ejection fraction, measured by Simpsons method, is 62 %. EF range is estimated at 60 % - 65 %. Left ventricle wall thickness is normal. There are no regional wall motion abnormalities. Left ventricular diastolic function parameters are normal. Right Ventricle: Right ventricle is poorly visualized. The RV function appears grossly normal. Left Atrium: The left atrium is normal in size. IAS: An agitated saline study was performed and was negative for intracardiac shunting. Right Atrium: The right atrium is normal in size. Mitral Valve: Mitral valve appears structurally normal. Moderate mitral regurgitation. No mitral valve stenosis. There is mild mitral thickening. Aortic Valve: The aortic valve is structurally normal and trileaflet. No aortic valve regurgitation. There is no aortic stenosis. Tricuspid Valve: Tricuspid valve leaflets are structurally normal. Trivial tricuspid regurgitation. No tricuspid valve stenosis. Pulmonary artery pressure cannot be assessed due to inadequate TR signal. Pulmonic Valve: Pulmonic valve is poorly visualized. No pulmonic valve regurgitation is evident. Aorta: The aortic root size in 2D measures 2.8 cm. The aortic root exhibits normal size. The ascending aorta measures 2.5 cm. Ascending aorta is normal in size. Aorta Measurements AoRoot, 2D is 2.8 cm. IVC: The inferior vena cava is poorly visualized. Pericardium: No pericardial effusion. Exam Details Patient: OSCAR FERREIRA Study Date: 09/08/2018 Page 2 of 3 09:28 AM Procedure Ordered: Echo Procedure Status: Routine study Image Quality: Adequate Contrast: I.V. dose of agitated salineIntravenous contrast was administered to evaluate intracardiac shunting Facility Location: Cardiac Echo 1 (No Signature Object) Patient: OSCAR FERREIRA Study Date: 09/08/2018 Page 3 of 3 09:28 AM [id number]
[2018-09-08 12:08] VITALS: BP 166/87
--- NOTE | 2018-09-08 13:21 | ASDISCHSUM ---
Discharge Information Plan Status:Home with No Needs Medically Cleared to Leave: Discharge Date: CM D/C Disposition:Home, Routine, Self-Care ADT D/C Disposition:Home, Routine, Self-Care Projected Discharge Date: Transportation at D/C: Discharge Delay Reason: Follow-Up Date: Discharge Slot: Final Diagnosis: Placement Information Patient Contact Information Contact Name:ERIC Relationship:Life Partner Address:[address] [place] Alternate Phone: State/Zip Code:[place] [address] Email: Financial Information Financial Class:HMO and PPO Plans Primary Plan Desc:[facility] Primary Plan Number:[id number] Secondary Plan Desc: Secondary Plan Number: Assessment Information LACE LACE Length of stay for Answers: Less than 1 day current admission Comorbidities - select Answers: Cerebrovascular disease all that apply (CVA, TIA, aneurysms, vasc ular dementia) Opioid dependence / Chronic pain Peripheral vascular disease Other Notes: Hx of lung cancer; HLD # of Emergency department Answers: 1-2 visits in the last 6 months Social determinants Answers: Mental health diagnosis (anxiety, depression, pers onality disorders, etc.) Score: 11 Date Signed: 09/08/2018 01:20 PM Electronically Signed By:Gisel Forte Intervention Information
[2018-09-08] MEDS ORDERED: metFORMIN HCL 500 MG TAB PO SCH (18:00)
--- NOTE | 2018-09-08 20:27 | CPEKG ---
Test Reason : OPEN Blood Pressure : / mmHG Vent. Rate : 094 BPM Atrial Rate : 095 BPM P-R Int : 134 ms QRS Dur : 075 ms QT Int : 370 ms P-R-T Axes : 044 035 027 degrees QTc Int : 463 ms Sinus rhythm Probable left atrial enlargement Confirmed by Mitra Bills ([id number]) on 09/08/2018 8:26:54 PM Referred By: MITRA BILLS Confirmed By:Mitra Bills
== END 2018-09-08 14:40 | disposition home or self-care (01) ==
LOC: F3N 17:19
PROVIDERS: ADMIT Internal Medicine; ATTEND Internal Medicine
DX: I63.9 Cerebral infarction, unspecified (principal); I82.401 Acute embolism and thrombosis of unspecified deep veins of right lower extremity; E78.5 Hyperlipidemia, unspecified; C34.90 Malignant neoplasm of unspecified part of unspecified bronchus or lung; E87.1 Hypo-osmolality and hyponatremia; E11.9 Type 2 diabetes mellitus without complications
CPT/HCPCS: 70450; 70496; 70498; 92523; 92610; 93005; 93306; 97161; 97166; 97530; 99285; G0378; 84484-ER; Q9967